=== PATIENT | male | born 1955 | race Caucasian/White ===

== ENCOUNTER 2018-09-01 07:36 | Inpatient (IN) | payer OTHER ==
[~2018-09-01] VITALS: Ht 170.2 cm; Wt 73.5 kg
[~2018-09-01 07:36] MED LIST: ASPIRIN PO; CARV12.52 PO; DOXA2TAB9 PO; FURO20TA3 PO; FURO40TA6 PO; HYDROCODONE PO; INSULIN APIDRA SC; IRBE1TAB37 PO; LEVO112T2 PO; LOVA10TA PO; NORT10CA PO; SPIR25TA5 PO
--- NOTE | 2018-09-01 08:38 | NUR ---
PT AND REFUSING CHEST XR
--- NOTE | 2018-09-01 08:39 | NUR ---
PT AND REFUSING THE CT SCAN
--- NOTE | 2018-09-01 08:45 | NUR ---
PT NOW AGREES TO IMAGING
[2018-09-01 08:48] LABS: BASOPHILS % (AUTO) 0 % (0-1); EOSINOPHILS # (AUTO) 0.02 x10^3/uL (0-0.4); EOSINOPHILS % (AUTO) 0 % (1-7); LYMPHOCYTES # (AUTO) 0.43 x10^3/uL (1-3.4); LYMPHOCYTES % (AUTO) 5 % (22-44); MD NO; MEAN CORPUSCULAR HEMOGLOBIN 30.1 pg (27.5-34.5); MEAN CORPUSCULAR HGB CONC 32.1 g/dL (33.2-36.2); MEAN CORPUSCULAR VOLUME 93.7 fL (81-97); MONOCYTES # (AUTO) 0.09 x10^3/uL (0.2-0.8); MONOCYTES % (AUTO) 1 % (2-9); NEUTROPHILS # (AUTO) 9.14 x10^3/uL (1.8-6.8); NEUTROPHILS % (AUTO) 94 % (42-75); PLATELET COUNT 269 x10^3/uL (130-400); RED BLOOD COUNT 3.75 x10^6/uL (4.38-5.82); RED CELL DISTRIBUTION WIDTH 14.9 % (9.4-14.8)
[2018-09-01 08:59] LABS: INTERNATIONAL NORMALIZED RATIO 1.07 (0.93-1.1); PROTHROMBIN TIME 11.3 Seconds (9.6-11.5)
[2018-09-01 09:02] LABS: ALBUMIN 3.5 g/dL (3.4-5.0); ANION GAP 11 mmol/L (5-15); CALCIUM 8.7 mg/dL (8.5-10.1); CHLORIDE 103 mmol/L (98-107)
[2018-09-01 09:08] LABS: TROPONIN I < 0.015 ng/mL (0.000-0.045)
[2018-09-01 09:14] LABS: ALANINE AMINOTRANSFERASE 24 U/L (12-78); ALKALINE PHOSPHATASE 88 U/L (45-117); BILIRUBIN,TOTAL 0.6 mg/dL (0.2-1.0); CREATINE KINASE, TOTAL 221 U/L (39-308); CREATININE 2.81 mg/dL (0.7-1.3); TOTAL PROTEIN 7.3 g/dL (6.4-8.2)
--- NOTE | 2018-09-01 09:56 | NUR ---
PT WITH [facility]. REFUSED BY NATHALIE MONROE [facility]
[2018-09-01] MEDS ORDERED: SODIUM CHLORIDE 0.9% 1,000ML IVBOLUS ONE (10:00)
--- NOTE | 2018-09-01 10:06 | NUR ---
NS BOLUS STARTED BY WARMER PER DIXIE
--- NOTE | 2018-09-01 10:15 | NUR ---
PT AND FAMILY REMAIN RELUCTANT TO AGREE TO RECOMENDED TX
[2018-09-01 10:30] LABS: ACETAMINOPHEN 2 mcg/mL (10-30); SALICYLATE LEVEL < 1.7 mg/dL (2.8-20.0)
--- NOTE | 2018-09-01 10:30 | NUR ---
NOW AGREES TO CXR
--- NOTE | 2018-09-01 11:00 | NUR ---
PT REFUSING CXR- NURSE NOTIFIED
--- NOTE | 2018-09-01 11:03 | NUR ---
PT RQUESTED AN AMA FROM THE ERP ON DC AT LENGTH HE CHANGED HIS MIND SEVERAL TIME RE AMA OR NOT AT THIS TIME HIS CHOICE IS ADMIT AND TO PARTICIPATE IN ALL CARE
--- NOTE | 2018-09-01 12:25 | NUR ---
SBAR HAND-OFF REPORT RECEIVED FROM ZAYRA ZAMORA. ASSUMING CARE OF PATIENT.
[2018-09-01] MEDS: SODIUM CHLORIDE 0.9% 1,000 ML IV SCH (12:31)
--- NOTE | 2018-09-01 12:58 | NUR ---
PT REFUSING ALL XRAYS
[2018-09-01] MEDS ORDERED: hydrALAzine 20 MG/ML, 1ML IVPush PRN (13:00)
[2018-09-01] MEDS ORDERED: BACLOFEN 10 MG TABLET PO PRN (13:00)
[2018-09-01] MEDS ORDERED: LABETALOL 5MG/ML, 20ML IVPush PRN (13:00)
[2018-09-01] MEDS ORDERED: DEXTROSE 50%, 50ML SYRINGE IVPush PRN (13:00)
[2018-09-01] MEDS ORDERED: DOCUSATE 100 MG CAPSULE PO PRN (13:00)
[2018-09-01] MEDS ORDERED: BISACODYL 10 MG SUPP PR PRN (13:00)
[2018-09-01] MEDS ORDERED: ACETAMINOPHEN 325 MG TABLET PO PRN (13:00)
[2018-09-01] MEDS ORDERED: POLYETHYLENE GLYCOL 17 GM PACKET PO PRN (13:00)
[2018-09-01] MEDS ORDERED: GLUCAGON 1 MG IM PRN (13:00)
[2018-09-01] MEDS ORDERED: DEXTROSE 4 GM TAB.CHEW PO PRN (13:00)
[2018-09-01] MEDS ORDERED: GABAPENTIN 300 MG CAPSULE PO PRN (13:00)
[2018-09-01 13:11] LABS: TROPONIN I 0.043 ng/mL (0.000-0.045)
[2018-09-01 13:17] LABS: THYROID STIMULATING HORMONE 0.424 mIU/L (0.358-3.740)
[2018-09-01 13:33] LABS: HEMOGLOBIN A1C 7.9 % (4.2-6.3)
[2018-09-01] MEDS ORDERED: INSULIN LISPRO 100 UNITS/ML, PEN ONE (13:59)
[2018-09-01] MEDS: INSULIN LISPRO 100 UNITS/ML, PEN SQ-INSULIN SCH ×3 (14:07→21:00)
--- NOTE | 2018-09-01 14:31 | NUR ---
SBAR TELEPHONE HAND-OFF REPORT GIVEN TO ZAYRA NICHOLS. PATIENT READY TO GO TO HOSPITAL ROOM.
[2018-09-01 14:55] LABS: AMPHETAMINE SCREEN, URINE Negative (Negative); BARBITURATE SCREEN, URINE Negative (Negative); BENZODIAZEPINE SCREEN, URINE Negative (Negative); CANNABINOID SCREEN, URINE Positive (Negative); COCAINE SCREEN, URINE Negative (Negative); METHADONE SCREEN, URINE Negative (Negative); OPIATE SCREEN, URINE Positive (Negative)
[2018-09-01 15:02] LABS: MICROSCOPIC INDICATED
[2018-09-01 15:15] VITALS: BP 131/52
[2018-09-01 15:19] VITALS: BP 131/52
[2018-09-01 15:20] VITALS: BP 131/52
[2018-09-01 15:47] LABS: CULTURE INDICATED? YES
[2018-09-01] MEDS ORDERED: HYDROcodone/APAP 10/325 MG TABLET PO PRN (16:00)
[2018-09-01] MEDS ORDERED: LEVO125T PO ×2 (17:05)
[2018-09-01 18:53] LABS: TROPONIN I 0.322 ng/mL (0.000-0.045)
[2018-09-01 19:02] VITALS: BP 127/55
[2018-09-01] MEDS: ASPIRIN 81 MG TABLET EC PO SCH (20:58)
[2018-09-01] MEDS: SODIUM CHLORIDE FLUSH 10ML SYR IVF SCH (20:59)
[2018-09-01] MEDS: CARVEDILOL 12.5 MG TABLET PO SCH (20:59)
[2018-09-01] MEDS: NORTRIPTYLINE 10 MG CAPSULE PO SCH (20:59)
[2018-09-01] MEDS: DOXAZOSIN 2MG TABLET PO SCH (20:59)
[2018-09-02 01:10] VITALS: BP 132/64
[2018-09-02 05:36] LABS: BASOPHILS # (AUTO) 0.03 x10^3/uL (0-0.1); BASOPHILS % (AUTO) 0 % (0-1); EOSINOPHILS # (AUTO) 0.31 x10^3/uL (0-0.4); EOSINOPHILS % (AUTO) 4 % (1-7); LYMPHOCYTES # (AUTO) 0.79 x10^3/uL (1-3.4); LYMPHOCYTES % (AUTO) 9 % (22-44); MD NO; MEAN CORPUSCULAR HEMOGLOBIN 30.8 pg (27.5-34.5); MEAN CORPUSCULAR HGB CONC 32.7 g/dL (33.2-36.2); MEAN CORPUSCULAR VOLUME 94.2 fL (81-97); MEAN PLATELET VOLUME 8.5 fL (7.4-10.4); MONOCYTES # (AUTO) 0.77 x10^3/uL (0.2-0.8); MONOCYTES % (AUTO) 9 % (2-9); NEUTROPHILS # (AUTO) 6.97 x10^3/uL (1.8-6.8); NEUTROPHILS % (AUTO) 79 % (42-75); PLATELET COUNT 220 x10^3/uL (130-400); RED BLOOD COUNT 2.98 x10^6/uL (4.38-5.82); RED CELL DISTRIBUTION WIDTH 14.6 % (9.4-14.8)
[2018-09-02 05:38] LABS: CHLORIDE 98 mmol/L (98-107)
[2018-09-02 05:44] LABS: ANION GAP 14 mmol/L (5-15); CALCIUM 7.9 mg/dL (8.5-10.1); CREATININE 3.23 mg/dL (0.7-1.3)
[2018-09-02 05:45] LABS: CHOLESTEROL, TOTAL 100 mg/dL (140-239); HDL CHOL % 51 % (26-37); HDL CHOLESTEROL (DIRECT) 51 mg/dL (40-60); LDL CHOLESTEROL,CALCULATED 36 mg/dL (54-169); LDL/HDL RATIO 0.7 (0.5-3.0); TRIGLYCERIDES 63 mg/dL (50-200); VLDL CHOLESTEROL 13 mg/dL (0-25)
[2018-09-02] MEDS: SODIUM CHLORIDE 0.9% 1,000 ML IV SCH ×2 (06:12→18:49)
[2018-09-02] MEDS: LEVOTHYROXINE 125 MCG TABLET PO SCH (06:12)
[2018-09-02 06:38] VITALS: BP 149/67
[2018-09-02] MEDS ORDERED: SODIUM CHLORIDE 0.9%, 500ML IVBOLUS ONE (07:00)
[2018-09-02 07:52] LABS: ANION GAP 14 mmol/L (5-15); CALCIUM 7.7 mg/dL (8.5-10.1); CHLORIDE 100 mmol/L (98-107); CREATININE 3.27 mg/dL (0.7-1.3)
[2018-09-02] MEDS: INSULIN LISPRO 100 UNITS/ML, PEN SQ-INSULIN SCH ×3 (08:58→15:49)
[2018-09-02] MEDS: CARVEDILOL 12.5 MG TABLET PO SCH ×2 (08:58→20:24)
[2018-09-02] MEDS: ASPIRIN 81 MG TABLET EC PO SCH ×2 (08:59→20:24)
[2018-09-02] MEDS: SODIUM CHLORIDE FLUSH 10ML SYR IVF SCH ×2 (08:59→21:22)
[2018-09-02] MEDS ORDERED: INSULIN GLARGINE 100 UNITS/ML, PEN SQ-INSULIN SCH ×2 (10:00→21:00)
[2018-09-02 11:04] LABS: MICROSCOPIC AUTO
[2018-09-02 11:08] LABS: CULTURE INDICATED? NO
[2018-09-02 12:05] LABS: ALBUMIN 3.3 g/dL (3.4-5.0); ANION GAP 15 mmol/L (5-15); CALCIUM 8.2 mg/dL (8.5-10.1); CHLORIDE 100 mmol/L (98-107); CREATININE 3.22 mg/dL (0.7-1.3)
[2018-09-02 14:00] VITALS: BP 126/69
[2018-09-02] MEDS ORDERED: SODIUM BICARBONATE 8.4% 75 MEQ in SODIUM CHLORIDE 0.45% 1,000 ML IV SCH (14:00)
[2018-09-02 14:35] LABS: ALBUMIN 3.1 g/dL (3.4-5.0); ANION GAP 12 mmol/L (5-15); CHLORIDE 98 mmol/L (98-107)
[2018-09-02 14:36] LABS: CREATININE 3.25 mg/dL (0.7-1.3)
[2018-09-02 16:32] LABS: ACETONE, SERUM Large (80mg/dL) mg/dL (Negative)
[2018-09-02 17:19] LABS: MICROSCOPIC AUTO
[2018-09-02] MEDS ORDERED: REGULAR INSULIN 62.5 UNITS in SODIUM CHLORIDE 0.9% 249.375 ML IV PRN (18:00)
[2018-09-02 18:32] LABS: ANION GAP 11 mmol/L (5-15); CHLORIDE 99 mmol/L (98-107); CREATININE 3.34 mg/dL (0.7-1.3)
[2018-09-02] MEDS: D5%-0.45% NACL 1,000 ML IV SCH (19:50)
[2018-09-02] MEDS ORDERED: MAGNESIUM SULFATE PMX 2GM/50ML 50 ML IV PRN (20:00)
[2018-09-02] MEDS: DOXAZOSIN 2MG TABLET PO SCH (20:24)
[2018-09-02] MEDS: NORTRIPTYLINE 10 MG CAPSULE PO SCH (21:22)
[2018-09-02 22:40] LABS: ANION GAP 9 mmol/L (5-15); CALCIUM 7.9 mg/dL (8.5-10.1); CHLORIDE 103 mmol/L (98-107); CREATININE 3.21 mg/dL (0.7-1.3)
[2018-09-03] MEDS: D5%-0.45% NACL 1,000 ML IV SCH (01:04)
[2018-09-03] MEDS: SODIUM CHLORIDE 0.9% 1,000 ML IV SCH (02:43)
[2018-09-03 02:53] LABS: BASOPHILS # (AUTO) 0.02 x10^3/uL (0-0.1); BASOPHILS % (AUTO) 0 % (0-1); EOSINOPHILS # (AUTO) 0.26 x10^3/uL (0-0.4); EOSINOPHILS % (AUTO) 4 % (1-7); LYMPHOCYTES % (AUTO) 13 % (22-44); MD NO; MEAN CORPUSCULAR HEMOGLOBIN 30.9 pg (27.5-34.5); MEAN CORPUSCULAR VOLUME 93.4 fL (81-97); MEAN PLATELET VOLUME 7.9 fL (7.4-10.4); MONOCYTES # (AUTO) 0.82 x10^3/uL (0.2-0.8); MONOCYTES % (AUTO) 12 % (2-9); NEUTROPHILS # (AUTO) 5.07 x10^3/uL (1.8-6.8); NEUTROPHILS % (AUTO) 72 % (42-75); PLATELET COUNT 240 x10^3/uL (130-400); RED BLOOD COUNT 3.02 x10^6/uL (4.38-5.82); RED CELL DISTRIBUTION WIDTH 14.6 % (9.4-14.8)
[2018-09-03 03:04] LABS: ANION GAP 9 mmol/L (5-15); CALCIUM 8.2 mg/dL (8.5-10.1); CHLORIDE 109 mmol/L (98-107); CREATININE 2.96 mg/dL (0.7-1.3)
[2018-09-03] MEDS: LEVOTHYROXINE 125 MCG TABLET PO SCH (06:16)
[2018-09-03 06:55] LABS: ANION GAP 11 mmol/L (5-15); CALCIUM 8.4 mg/dL (8.5-10.1); CHLORIDE 107 mmol/L (98-107); CREATININE 2.75 mg/dL (0.7-1.3)
[2018-09-03] MEDS: INSULIN LISPRO 100 UNITS/ML, PEN SQ-INSULIN SCH ×2 (08:02→12:02)
[2018-09-03] MEDS ORDERED: INSULIN GLARGINE 100 UNITS/ML, PEN SQ-INSULIN SCH (09:00)
[2018-09-03] MEDS: SODIUM CHLORIDE FLUSH 10ML SYR IVF SCH (09:27)
[2018-09-03] MEDS: CARVEDILOL 12.5 MG TABLET PO SCH (09:28)
[2018-09-03] MEDS: ASPIRIN 81 MG TABLET EC PO SCH (09:28)
[2018-09-03] MEDS ORDERED: SODIUM CHLORIDE 0.9% 1,000 ML IV SCH (19:00)
[2018-09-03] MEDS ORDERED: D5%-0.45% NACL 1,000 ML IV SCH (20:00)
== END 2018-09-03 14:40 | disposition home or self-care (01) | DRG 637 ==
LOC: ED 08:17 → EDIP 11:21 → 4WST 15:08 → CCU 09-02 17:49 → DCLOUNGE 09-03 14:36
PROVIDERS: ADMIT Hospitalist; ATTEND Hospitalist
PROC: 0T9B70Z Drainage of Bladder with Drainage Device, Via Natural or Artificial Opening (ICD-10-PCS; principal; 2018-09-01)
DX: E11.10 Type 2 diabetes mellitus with ketoacidosis without coma (principal); G92 Toxic encephalopathy; N17.9 Acute kidney failure, unspecified; E11.649 Type 2 diabetes mellitus with hypoglycemia without coma; I12.9 Hypertensive chronic kidney disease with stage 1 through stage 4 chronic kidney disease, or unspecified chronic kidney disease; N18.9 Chronic kidney disease, unspecified; E03.9 Hypothyroidism, unspecified; E11.22 Type 2 diabetes mellitus with diabetic chronic kidney disease; E11.51 Type 2 diabetes mellitus with diabetic peripheral angiopathy without gangrene; E11.40 Type 2 diabetes mellitus with diabetic neuropathy, unspecified; G89.29 Other chronic pain; I95.9 Hypotension, unspecified; Z96.41 Presence of insulin pump (external) (internal); M19.90 Unspecified osteoarthritis, unspecified site; H40.9 Unspecified glaucoma; H54.7 Unspecified visual loss; H91.90 Unspecified hearing loss, unspecified ear; S90.511A Abrasion, right ankle, initial encounter; S90.812A Abrasion, left foot, initial encounter; S90.811A Abrasion, right foot, initial encounter; W18.39XA Other fall on same level, initial encounter; Y93.89 Activity, other specified; Y92.89 Other specified places as the place of occurrence of the external cause; Z88.8 Allergy status to other drugs, medicaments and biological substances; Z88.1 Allergy status to other antibiotic agents; Z79.4 Long term (current) use of insulin; Z80.9 Family history of malignant neoplasm, unspecified
CPT/HCPCS: 36415; 36600; 70450; 71045; 80048; 80053; 80061; 80307; 80329; 80377; 81001; 82010; 82040; 82140; 82533; 82550; 82803; 82962; 83036; 83525; 83735; 83880; 84100; 84206; 84443; 84484; 84681; 85025; 85610; 85730; 87081; 87086; 93005; 93306; 93880; 96360; 99291; G0378; G0480; G0481; J1815; J7030; J7040